=== PATIENT | male | born 1965 | race Caucasian/White ===

== ENCOUNTER 2018-01-01 10:34 | Emergency (ER) | payer MEDICAID ==
[~2018-01-01] VITALS: Ht 195.6 cm; Wt 132.0 kg
[2018-01-01 12:20] VITALS: BP 155/97
== END 2018-01-01 12:25 | disposition home or self-care (01) ==
LOC: ER 10:34
DX: S39.012A Strain of muscle, fascia and tendon of lower back, initial encounter (principal); Z87.891 Personal history of nicotine dependence; X58.XXXA Exposure to other specified factors, initial encounter; Y93.89 Activity, other specified; Y92.89 Other specified places as the place of occurrence of the external cause; Y99.8 Other external cause status
CPT/HCPCS: 99282; Z7610